=== PATIENT | male | born 1960 | race Caucasian/White ===

== ENCOUNTER 2017-11-30 11:11 | Outpatient (CLI) | payer OTHER ==
[2013-05-17 10:09] VITALS: O2SAT 96
== END 2017-11-30 11:12 | disposition home or self-care (01) | DRG 556 ==
LOC: CONVCARE 11:11
PROVIDERS: ATTEND Orthopaedic Surgery
DX: M25.512 Pain in left shoulder (principal); S43.101D Unspecified dislocation of right acromioclavicular joint, subsequent encounter; S43.102D Unspecified dislocation of left acromioclavicular joint, subsequent encounter
CPT/HCPCS: 73050